=== PATIENT | male | born 1960 | race African-American/Black ===

== ENCOUNTER 2016-05-29 15:36 | Emergency (ER) | payer OTHER ==
[~2016-05-29] VITALS: Ht 170.2 cm; Wt 100.7 kg
[2016-05-29] MEDS ORDERED: MOBIC7.5 MG PO (17:08)
[2016-05-29 17:53] VITALS: BP 129/82
== END 2016-05-29 17:55 | disposition home or self-care (01) ==
LOC: EME 15:36
DX: S90.122A Contusion of left lesser toe(s) without damage to nail, initial encounter (principal); I10 Essential (primary) hypertension; F32.9 Major depressive disorder, single episode, unspecified; W23.0XXA Caught, crushed, jammed, or pinched between moving objects, initial encounter; Y92.9 Unspecified place or not applicable
CPT/HCPCS: 73630

== ENCOUNTER 2016-06-26 16:38 | Emergency (ER) | payer OTHER ==
[~2016-06-26] VITALS: Ht 170.2 cm; Wt 101.5 kg
[~2016-06-26 16:38] MED LIST: MOBIC7.5 MG PO
[2016-06-26 18:16] VITALS: BP 128/86
== END 2016-06-26 18:19 | disposition home or self-care (01) ==
LOC: EME 16:38
DX: F32.9 Major depressive disorder, single episode, unspecified (principal)
CPT/HCPCS: 90839; 99281; 99283

== ENCOUNTER 2016-09-09 04:15 | Emergency (ER) | payer OTHER ==
[~2016-09-09] VITALS: Ht 170.2 cm; Wt 102.0 kg
[2016-09-09] MEDS ORDERED: DESYREL100 MG PO (04:45)
[2016-09-09] MEDS ORDERED: MIRTAZAPINE45 MG PO (04:46)
[2016-09-09] MEDS ORDERED: ZYBAN 150 MG T150 MG PO (04:46)
[2016-09-09] MEDS ORDERED: PERCOCET 5/31 TABLET PO (06:58)
[2016-09-09 07:39] VITALS: BP 99/55
== END 2016-09-09 07:40 | disposition home or self-care (01) ==
LOC: EME 04:15
DX: S39.012A Strain of muscle, fascia and tendon of lower back, initial encounter (principal); W10.9XXA Fall (on) (from) unspecified stairs and steps, initial encounter; W22.8XXA Striking against or struck by other objects, initial encounter; M25.571 Pain in right ankle and joints of right foot; R26.2 Difficulty in walking, not elsewhere classified; M25.569 Pain in unspecified knee; G89.29 Other chronic pain; Z79.891 Long term (current) use of opiate analgesic; Z87.891 Personal history of nicotine dependence
CPT/HCPCS: 99281; 99284

== ENCOUNTER 2016-09-20 13:01 | Emergency (ER) | payer OTHER ==
[~2016-09-20] VITALS: Ht 170.2 cm; Wt 101.0 kg
[~2016-09-20 13:01] MED LIST changes: +DESYREL100 MG PO; +MIRTAZAPINE45 MG PO; +PERCOCET 5/31 TABLET PO; +ZYBAN 150 MG T150 MG PO
[2016-09-20] MEDS ORDERED: AMBIEN5 MG PO (13:41)
[2016-09-20] MEDS ORDERED: DEPRESSION (13:42)
[2016-09-20] MEDS ORDERED: WELLBUTRIN SR150 MG PO (13:44)
[2016-09-20] MEDS ORDERED: LISINOPRIL5 MG PO (13:45)
[2016-09-20] MEDS ORDERED: AMLOD-VALSA-HC1 EAC1 PO (13:45)
[2016-09-20] MEDS ORDERED: OSTERA TABLET1 EACH PO (13:46)
[2016-09-20] MEDS ORDERED: VIT B12 INJECTION (13:47)
[2016-09-20 14:32] VITALS: BP 132/76
== END 2016-09-20 14:32 | disposition home or self-care (01) ==
LOC: EXP 13:01 → EME 13:01 → EXP 14:32
DX: M25.522 Pain in left elbow (principal); W19.XXXD Unspecified fall, subsequent encounter
CPT/HCPCS: 73080; 99281; 99284

== ENCOUNTER 2016-09-25 11:38 | Emergency (ER) | payer OTHER ==
[~2016-09-25] VITALS: Ht 170.2 cm; Wt 100.2 kg
[~2016-09-25 11:38] MED LIST changes: +AMBIEN5 MG PO; +AMLOD-VALSA-HC1 EAC1 PO; +DEPRESSION; +LISINOPRIL5 MG PO; +OSTERA TABLET1 EACH PO; +VIT B12 INJECTION; +WELLBUTRIN SR150 MG PO
[2016-09-25] MEDS ORDERED: NAPROSYN500 MG PO (12:49)
[2016-09-25 13:11] VITALS: BP 110/67
== END 2016-09-25 13:11 | disposition home or self-care (01) ==
LOC: EME 11:38 → EXP 11:38
DX: M77.9 Enthesopathy, unspecified (principal); M25.522 Pain in left elbow
CPT/HCPCS: 73080; 99281; 99283

== ENCOUNTER 2017-04-06 07:56 | Emergency (ER) | payer OTHER ==
[~2017-04-06] VITALS: Ht 170.2 cm; Wt 100.9 kg
[~2017-04-06 07:56] MED LIST changes: +NAPROSYN500 MG PO
[2017-04-06] MEDS ORDERED: VENTOLIN HFA18 GM IH (08:13)
[2017-04-06] MEDS ORDERED: MIRTAZAPINE7.5 MG PO (08:16)
[2017-04-06] MEDS ORDERED: FLEXERIL10 MG PO (08:34)
[2017-04-06] MEDS ORDERED: LIDODERM 5% P1 PATCH TD (08:34)
[2017-04-06] MEDS ORDERED: ACETAMINOPHN-T1 EACH PO (08:34)
[2017-04-06 09:38] VITALS: BP 153/98
== END 2017-04-06 09:41 | disposition home or self-care (01) ==
LOC: EME 07:56
DX: S39.012A Strain of muscle, fascia and tendon of lower back, initial encounter (principal); X50.0XXA Overexertion from strenuous movement or load, initial encounter; I10 Essential (primary) hypertension; F32.9 Major depressive disorder, single episode, unspecified
CPT/HCPCS: 99281; 99284

== ENCOUNTER 2018-01-04 07:25 | Emergency (ER) | payer OTHER ==
[~2018-01-04] VITALS: Ht 170.2 cm; Wt 103.1 kg
[~2018-01-04 07:25] MED LIST changes: +ACETAMINOPHN-T1 EACH PO; +FLEXERIL10 MG PO; +LIDODERM 5% P1 PATCH TD; +MIRTAZAPINE7.5 MG PO; +VENTOLIN HFA18 GM IH
[2018-01-04] MEDS ORDERED: ERYTHROMYC1 APPLICAT RIGHT EYE (09:28)
[2018-01-04 10:05] VITALS: BP 132/88
== END 2018-01-04 10:08 | disposition home or self-care (01) ==
LOC: EME 07:25
DX: S05.02XA Injury of conjunctiva and corneal abrasion without foreign body, left eye, initial encounter (principal); X58.XXXA Exposure to other specified factors, initial encounter; I10 Essential (primary) hypertension; F32.9 Major depressive disorder, single episode, unspecified